=== PATIENT | male | born 1975 | race Two or more races ===

== ENCOUNTER 2024-05-12 07:42 | Emergency (ER) | payer OTHER ==
[~2024-05-12] VITALS: Ht 172.7 cm; Wt 95.7 kg
[2024-05-12] MEDS ORDERED: KETOROLAC TROMETHAMINE 60 MG VIAL IM STA (09:23)
== END 2024-05-12 11:12 | disposition home or self-care (01) ==
LOC: ER 07:44
DX: M25.552 Pain in left hip (principal); M51.26 Other intervertebral disc displacement, lumbar region

== ENCOUNTER → 2025-02-19 | Emergency (ER) | payer OTHER ==
[~2025-02-19] VITALS: Ht 172.7 cm; Wt 93.0 kg
== END | disposition left against medical advice (07) ==
LOC: ER 21:01
DX: Z53.21 Procedure and treatment not carried out due to patient leaving prior to being seen by health care provider (principal)

== ENCOUNTER 2025-04-11 17:58 | Emergency (ER) | payer OTHER ==
[~2025-04-11] VITALS: Ht 172.7 cm; Wt 93.0 kg
[2025-04-11 19:19] VITALS: O2SAT 98
[2025-04-11] MEDS ORDERED: LISINOPRIL 5 MG TABLET PO STA (19:35)
[2025-04-11 19:51] LABS: BASO % 0.9 % (0.1-1.2); EOS # 0.33 (0.04-0.54); EOS % 3.6 % (0.7-7.0); LYMPH # 2.87 (1.18-3.74); LYMPH % 31.3 % (19.3-53.1); MEAN PLATELET VOLUME 9.10 fl (9.4-12.4); MONO # 0.90 (0.24-0.82); MONO % 9.8 % (4.7-12.5); NEUT # 4.97 (1.56-6.13); NEUT % 54.3 % (34.0-71.1); RED CELL DISTRIBUTION WIDTH 12.4 % (11.6-14.4)
[2025-04-11 20:26] LABS: ALT/SGPT 58.0 U/L (12-78); AST/SGOT 23.0 U/L (15-37); BILIRUBIN TOTAL 0.39 mg/dL (0.3-1.2); BUN CREA RATIO 18.0 (7.0-25.0); CREATININE SERUM 0.91 mg/dL (0.70-1.30); GFR 87.83; GLOBULINA 4.5 G/DL (2.4-3.5); GLUCOSE FASTING 91.0 mg/dL (65-100); OSMOLALITY SERUM 278.0 MOSM/KG (275-295)
[2025-04-11 21:29] VITALS: BP 120/80
== END 2025-04-11 21:36 | disposition home or self-care (01) ==
LOC: ER 17:58
PROVIDERS: General Practice
DX: I10 Essential (primary) hypertension (principal)